=== PATIENT | female | born 1955 | race Two or more races ===

== ENCOUNTER → 2020-07-26 01:53 | Outpatient (CLI) | payer OTHER, SELFPAY ==
[2020-07-26 19:43] LABS: SARS-CoV-2 RNA PCR Negative
== END ==
PROVIDERS: PCP Internal Medicine; Visit Provider Internal Medicine Gastroenterology
DX: Z01.812 Encounter for preprocedural laboratory examination (principal); Z20.822 Contact with and (suspected) exposure to COVID-19
CPT/HCPCS: C9803; U0003; U0005

== ENCOUNTER 2020-07-29 02:13 | Day surgery (SDC) | payer OTHER, SELFPAY ==
[2020-07-17 12:39] VITALS: BMI 29.9
[2020-07-29 10:14] VITALS: BP 110/76; PULSE 71; RESP 16; TEMP 36.6; O2SAT 95; BMI 32.5
[2020-07-29] MEDS: LACTATED RINGERS 1,000 ML 150 ML IV CONT (10:24)
--- NOTE | 2020-07-29 10:31 | P.PNAN_ITS ---
Anes - Initial Pre Proc Eval Procedure: Operation Date: 07/29/20 11:30 Proposed Procedures p Screening Colonoscopy - Puneet Manjarrez MD Date/Time: 07/29/20 10:31 Surgeon: Puneet Manjarrez MD Pre Op Diagnosis: neoplasm screening Patient Data Age: 65 Gender: F Height: 1.65 m Weight: 88.9 kg Last Vital Signs Temp 36.6 C 07/29/20 10:14 Pulse 71 07/29/20 10:14 Resp 16 07/29/20 10:14 BP 110/76 07/29/20 10:14 Pulse Ox 95 07/29/20 10:14 Allergies Allergy/AdvReac Type Severity Reaction Status Date / Time NKDA Allergy Unknown Other Uncoded 07/29/20 10:12 Home Medications Medication Instructions Recorded Confirmed Type No Home Medications 07/03/20 07/29/20 History Patient hx anesthesia problems: none Family hx anesthesia problems: none PMFSH Past Medical History Medical History (Updated 07/28/20 @ 10:03 by Chau Ceron DO) Hyperlipemia Migraines Sickle cell trait Vaginal delivery x2 Surgical History Surgical History History of appendectomy 1992 History of dilation and curettage 1975 Family History Family History Father Malignant neoplasm of prostate Mother Senile dementia Social History Social History Smoking status: Never smoker Alcohol intake: former Substance use: never Substance use type: does not use Living arrangements: with family Gender identity (if verbalized by the patient): Female Anes - Eval Final PreProcedure Day of Procedure 07/29/20 10:31 Patient weight: obese Heart: regular rate and rhythm Lungs: clear to auscultation and normal air movement Airway: Mallampati scale class III Neurological: alert and oriented Last oral intake: >/= 8 hours ASA classification: II Emergent: no Anesthetic plan: proceed Anesthesia type and monitoring: general GIVS and standard monitoring Informed Consent: The patient's anesthetic plan and its attendant risks and benefits were discussed with the patient/family/POA. Questions were solicited an d answers provided to the satisfaction of the patient/family/POA.
--- NOTE | 2020-07-29 11:05 | PM.HPGS ---
History of Present Illness History of Present Illness Consent: Risks, benefits, and alternatives have been discussed and questions answered. Patient agrees to proceed with procedure. Chief complaint: neoplasm screening Narrative: Christy Cash is a 65 year old female with last colonoscopy 2009 Review of Systems Constitutional: Constitutional: Denies headache(s) and Denies weakness Eyes: Eyes: Denies blurry vision ENT: Reports Normal hearing present, Denies headache(s) and Denies neck pain Cardiovascular: Cardiovascular: Denies chest pain and Denies dyspnea Respiratory: Respiratory: Denies dyspnea Gastrointestinal: Gastrointestinal: Reports no additional gastrointestinal complaints Genitourinary: Genitourinary: Denies dysuria Musculoskeletal: Musculoskeletal: Denies neck pain Integumentary/Breasts: Skin/Breast: Denies dry skin Neurologic: Reports Normal hearing present, Denies headache(s) and Denies weakness Psychiatric: Psychiatric: Denies anxiety Endocrine: Endocrine: Denies change in body appearance Hematologic/Lymphatic: Hematologic/Lymphatic: Denies easy bleeding Allergic/Immunologic: Allergic/Immunologic: Denies urticaria PMF Past Medical History Medical History (Updated 07/29/20 @ 11:05 by Puneet Manjarrez MD) Colon cancer screening Hyperlipemia Migraines Sickle cell trait Vaginal delivery x2 Surgical History Surgical History History of appendectomy 1992 History of dilation and curettage 1975 Family History Family History Father Malignant neoplasm of prostate Mother Senile dementia Social History Social History Smoking status: Never smoker Alcohol intake: former Substance use: never Substance use type: does not use Living arrangements: with family Gender identity (if verbalized by the patient): Female Meds Home Medications and Allergies Home Medications Medication Instructions Recorded Confirmed Type No Home Medications 07/03/20 07/29/20 History Allergies Allergy/AdvReac Type Severity Reaction Status Date / Time NKDA Allergy Unknown Other Uncoded 07/29/20 10:12 Vital Signs Vital Signs - 24 hr 07/29/20 10:14 Temperature 98 F Pulse Rate 71 Respiratory Rate 16 Blood Pressure 110/76 Pulse Oximetry 95 Exam Const: General: comfortable and no acute distress HENMT: General nose exam: Normal nares present Eyes: General: appearance normal, both eyes and all related structures Neck: Neck: no JVD Resp: Auscultation: clear to auscultation bilaterally Cardio: Rate: regular rate Rhythm: regular rhythm GI: Inspection: non-distended GI Palp: Yes Soft to palpation Skin: General skin exam: normal color Neuro: General: gait normal Speech: normal speech Extrem: General: normal to inspection Psych: Mental Status: mental status grossly normal Assessment and Plan Assessment and plan (1) Colon cancer screening: Code(s): Z12.11 - Encounter for screening for malignant neoplasm of colon Status: Acute Assessment and Plan: colonoscopy
[2020-07-29 11:28] VITALS: BP 94/56; PULSE 56; RESP 14; O2SAT 98
[2020-07-29 11:38] VITALS: BP 104/67; PULSE 60; RESP 19; O2SAT 99
[2020-07-29 11:48] VITALS: BP 111/68; PULSE 55; RESP 18; O2SAT 99
== END 2020-07-29 11:55 | disposition home or self-care (01) ==
PROVIDERS: PCP Internal Medicine; Visit Provider Internal Medicine Gastroenterology
PROC: 0DJD8ZZ Inspection of Lower Intestinal Tract, Via Natural or Artificial Opening Endoscopic (ICD-10-PCS; CPT 45378; principal; 2020-07-29 11:30)
DX: Z12.11 Encounter for screening for malignant neoplasm of colon (principal); K57.30 Diverticulosis of large intestine without perforation or abscess without bleeding; K64.8 Other hemorrhoids; D57.3 Sickle-cell trait; E66.9 Obesity, unspecified; Z68.32 Body mass index [BMI] 32.0-32.9, adult
CPT/HCPCS: 45378; J2704; J7120

== ENCOUNTER → 2020-08-13 11:19 | Outpatient (CLI) | payer OTHER, SELFPAY ==
--- NOTE | ~2020-08-13 | MM_ITS ---
EXAMINATION: MM screening sully BI w rishi HISTORY: Screening TECHNIQUE: Craniocaudal and mediolateral oblique 3-D tomosynthesis images were obtained and synthetic 2-D images were generated. CAD analysis was submitted and interpreted. COMPARISON: Comparison to multiple prior studies sequentially, with oldest reviewed study dated 07/11. BREAST PARENCHYMAL COMPOSITION: The breasts are heterogeneously dense, which may obscure small masses . FINDINGS: There is no evidence of suspicious mass, calcification, or architectural distortion to sugg est malignancy in either breast. There has been no suspicious interval change. IMPRESSION: 1. No mammographic evidence of malignancy. 2. Recommend routine screening mammography in one year. BI-RADS Category 1: Negative Reviewed, dictated and finalized at location A.
== END ==
PROVIDERS: PCP Internal Medicine; Visit Provider Obstetrics & Gynecology
DX: Z12.31 Encounter for screening mammogram for malignant neoplasm of breast (principal)
CPT/HCPCS: 77063; 77067

== ENCOUNTER 2020-12-18 13:31 | Outpatient (CLI) | payer OTHER, SELFPAY ==
--- NOTE | ~2020-12-18 | US_ITS ---
EXAMINATION: US venous doppler [facility] DATE: 12/18/2020 14:17 INDICATION: Left lower limb pain TECHNIQUE: Grayscale ultrasound images without and with compression and Doppler ultrasound images of the left lower extremity veins were obtained. COMPARISON: None. FINDINGS: The visualized portions of left common femoral vein, profunda (deep) femoral vein, femoral vein, popl iteal vein, peroneal veins, posterior tibial veins, gastrocnemius vein and greater saphenous vein out flow are patent. There is a 3.8 x 1.3 x 3.1 cm loculated fluid collection along the posterior margin of the gastrocnemius muscle at the popliteal fossa. There appears be a second more caudal than lentic ular fluid collection measuring 5.4 x 0.7 x 4.4 cm along the surface of the muscle. IMPRESSION: 1. No deep venous thrombosis in the left lower limb. 2. A couple small fluid collection along the posterior margin of the gastrocnemius muscle at the prox imal left calf. Differential would include Helms's cyst, hematoma/seroma related to a muscle strain w hich would be favored and could not exclude abscess in the appropriate clinical setting. Reviewed, dictated and finalized at location B. IMPRESSION: 1. No deep venous thrombosis in the left lower limb. 2. A couple small fluid collection along the posterior margin of the gastrocnem ius muscle at the proximal left calf. Differential would include Helms's cyst, hematoma/seroma related to a muscle strain which would be favored and could not exclude abscess in the appropriate clinical setting.
== END 2020-12-18 13:32 | disposition home or self-care (01) ==
LOC: ANHIMG 13:36
PROVIDERS: PCP Internal Medicine; Visit Provider Registered Nurse
DX: R20.2 Paresthesia of skin (principal)
CPT/HCPCS: 93971

== ENCOUNTER → 2022-06-02 15:08 | Outpatient (CLI) | payer MEDICARE, OTHER, SELFPAY ==
--- NOTE | ~2022-06-02 | XR_ITS ---
Left foot Technique: AP and lateral standing views were obtained. Clinical History: Osteoarthritis Findings: No acute fracture or dislocation is seen. Osseous alignment is anatomic. There is mild dege nerative change of the talonavicular articulation. Soft tissues are unremarkable. Impression: Mild degenerative change at the talonavicular articulation. Reviewed, dictated and finalized at location . Impression: Mild degenerative change at the talonavicular articulation.
--- NOTE | ~2022-06-02 | XR_ITS ---
Right foot Technique: AP and lateral standing views were obtained. Clinical History: Osteoarthritis Findings: No acute fracture or dislocation is seen. Osseous alignment is anatomic. Mild degenerative change at the talonavicular articulation noted. Soft tissues are unremarkable. Impression: Mild degenerative change at the talonavicular articulation. Reviewed, dictated and finalized at [facility]. Impression: Mild degenerative change at the talonavicular articulation.
--- NOTE | ~2022-06-02 | XR_ITS ---
Bilateral Hands Technique: Bilateral PA, oblique, and lateral views, and ball-catcher's view were obtained. Clinical History: Osteoarthritis Findings: No acute fracture or dislocation is seen. Osseous alignment is anatomic. Joint spaces are p reserved. Soft tissues are unremarkable. Impression: Unremarkable bilateral hand radiographs. Reviewed, dictated and finalized at location . Impression: Unremarkable bilateral hand radiographs.
== END ==
PROVIDERS: PCP Internal Medicine; Visit Provider Internal Medicine
DX: M19.90 Unspecified osteoarthritis, unspecified site (principal)
CPT/HCPCS: 73130; 73620

== ENCOUNTER 2024-11-14 10:58 | Outpatient (CLI) | payer MEDICARE, OTHER, SELFPAY ==
--- NOTE | ~2024-11-14 | MM_ITS ---
EXAMINATION: MM screening sully BI w rishi HISTORY: Screening TECHNIQUE: Craniocaudal and mediolateral oblique 3-D tomosynthesis images were obtained and synthetic 2-D images were generated. CAD analysis was submitted and interpreted. COMPARISON: Mammogram 08/13/2020 BREAST PARENCHYMAL COMPOSITION: There are scattered areas of fibroglandular density. FINDINGS: There is no evidence of suspicious mass, calcification, or architectural distortion in either breast to suggest malignancy. There has been no significant interval change. IMPRESSION: 1. No mammographic evidence of malignancy. Recommend routine screening mammography in one year. BI-RADS Category 1: Negative Reviewed, dictated and finalized at location Q. IMPRESSION: 1. No mammographic evidence of malignancy. Recommend routine screening mammogra phy in one year. BI-RADS Category 1: Negative
--- NOTE | ~2024-11-14 | DEXA_ITS ---
Bone Density Report Name: ALEA FRANCIS Age: 69 Sex: Female Ethnicity: White Date of : 1955 Indication: postmenopausal; screening for osteoporosis; rheumatoid arthritis; Referring Provider: Flor, Dillon Study: Bone densitometry was performed. Exam Date: November 14, 2024 Accession number: [id number] Bone Density: Region BMD T-score Z-score Classification AP Spine(L1-L4) 1.029 -0.2 1.9 Normal Femoral Neck (Left) 0.793 -0.5 1.2 Normal Total Hip (Left) 0.865 -0.6 0.8 Normal Femoral Neck (Right) 0.911 0.6 2.3 Normal Total Hip (Right) 0.893 -0.4 1.0 Normal Total Hip Mean 0.879 -0.5 0.9 Normal World Health Organization criteria for BMD impression classify patients as: Normal (T-score at or above -1.0), Osteopenia (T-score between -1.0 and -2.5), or Osteoporosis (T-score at or below -2.5). 10-year Fracture Risk: FRAX not reported because: All T-scores for Spine Total, Hip Total, Femoral Neck at or above -1.0 Previous Exams: -- Region Exam Age BMD T-score BMD Change BMD Change Date g/cm2 vs Baseline vs Previous -- AP Spine (L1-L4) 11/14/2024 69 1.029 -0.2 -5.2%* -5.2%* 06/05/2015 60 1.085 0.3 Total Hip(Left) 11/14/2024 69 0.865 -0.6 -15.5%* -15.5%* 06/05/2015 60 1.023 0.7 Total Hip(Right) 11/14/2024 69 0.893 -0.4 -12.2%* -12.2%* 06/05/2015 60 1.017 0.6 -- *Denotes significance at 95% confidence level, LSC for AP Spine = 0.022 g/cm2, LSC for Total Hip = 0.027 g/cm2 Clinical Information Provided by Patient: Has rheumatoid arthritis Has used the following medications: Vitamin D Patient maximum height was 64.5 Menopause Age: 55 Drinks caffeinated beverages Onset of menses at age 14 Number of children 2 Impression: The patient has normal bone mass. The BMD for the AP Spine (L1-L4) decreased, changing by -5.2% since the last DXA exam. The BMD for the Total Hip(Left) decreased, changing by -15.5% since the last DXA exam. The BMD for the Total Hip(Right) decreased, changing by -12.2% since the last DXA exam. Discussion: BONE DENSITY IS ABOVE THE MINIMUM DESIRABLE LEVEL AT ALL SKELETAL SITES TESTED. This patient?s bone mineral density is above the minimum desirable level (T-score -1.0 or better) at all sites measured. The patient should follow a healthful lifestyle (good nutrition with adequate calcium and vitamin D, and appropriate weight-bearing exercise). Follow-Up: Consider repeating this study in 3 to 4 years to reassess this patient's status, or sooner if there is some new clinical indication. Reported by: YULI on 11/14/2024 11:32:00 AM. Reviewed, dictated and finalized at location A.
== END 2024-11-14 10:59 | disposition home or self-care (01) ==
PROVIDERS: PCP Internal Medicine; Visit Provider Internal Medicine
DX: Z12.31 Encounter for screening mammogram for malignant neoplasm of breast (principal); Z78.0 Asymptomatic menopausal state
CPT/HCPCS: 77063; 77067; 77080